=== PATIENT | male | born 1970 ===

== ENCOUNTER 2019-04-20 15:34 | Emergency (ER) | payer OTHER ==
[~2019-04-20] VITALS: Ht 170.2 cm; Wt 83.0 kg
[2019-04-20] MEDS ORDERED: HUMALOG100 UNIT/1 (15:51)
[2019-04-20] MEDS ORDERED: HYZAAR 100-12.1 EACH (15:52)
[2019-04-20] MEDS ORDERED: NORVASC5 MG (15:52)
== END 2019-04-20 17:54 | disposition home or self-care (01) ==
LOC: ER 15:34
DX: S20.211A Contusion of right front wall of thorax, initial encounter (principal); W18.39XA Other fall on same level, initial encounter; Y93.89 Activity, other specified; Y92.098 Other place in other non-institutional residence as the place of occurrence of the external cause; Y99.8 Other external cause status